=== PATIENT | male | born 1970 ===

== ENCOUNTER 2021-07-19 10:50 | Observation (INO) ==
[~2021-07-19 10:50] MED LIST: Buffered Lidocaine 1% SYRIN 1 ml INTRADERM ONE; Lactated Ringers 1000 ml BAG 1,000 ML IV SCH; Midazolam 2 mg/2 ml VIAL 1 mg/ml 2 ml VIAL (2 mg) ONE; Propofol 10 MG/ML 20 ML BTL ONE; fentaNYL 100 mcg/2 ml 50 MCG/ML VIAL ONE
[2021-07-19] MEDS ORDERED: ceFAZolin 2 GM PREMIX 2 GM/50 ML BAG ONE (11:03)
[2021-07-19] MEDS ORDERED: Rocuronium 50 mg VIAL 10 mg/ml 5 ml VIAL (50 mg) ONE ×2 (11:18→13:19)
[2021-07-19] MEDS ORDERED: Lidocaine 2% PF 5 ML VIAL ONE (11:36)
[2021-07-19 11:40] LABS: Urine Appearance Clear; Urine Bilirubin Negative (Negative); Urine Blood Negative (Negative); Urine Color Yellow; Urine Glucose Negative (Negative); Urine Ketones Negative (Negative); Urine Nitrite Negative (Negative); Urine Protein Negative (Negative); Urine Specific Gravity 1.021 (1.002-1.030); Urine Urobilinogen Negative (Negative)
[2021-07-19] MEDS ORDERED: Prochlorperazine 5 mg/ml 2 ml VIAL (10 mg) IV PRN (12:38)
[2021-07-19] MEDS ORDERED: Ondansetron 4 mg VIAL 2 MG/ML 2 ml VIAL IV PRN ×2 (12:38→13:07)
[2021-07-19] MEDS ORDERED: DiMENhydriNATE IV 50 mg/ml 1 ml VIAL IV PUSH PRN (12:38)
[2021-07-19] MEDS ORDERED: Naloxone 0.4 mg VIAL 0.4 mg/ml 1 ml VIAL IV PRN (12:38)
[2021-07-19] MEDS ORDERED: Acetaminophen IV 1 GM/100ML 100 ML IV PRN (12:38)
[2021-07-19] MEDS ORDERED: fentaNYL 100 mcg/2 ml 50 MCG/ML VIAL ONE ×3 (12:43→18:43)
[2021-07-19] MEDS ORDERED: HYDROmorphone 0.5 MG/0.5 ML SYRINGE ONE ×2 (12:44→14:09)
[2021-07-19] MEDS ORDERED: EPHEDrine (Pressors) 50 MG/ML VIAL ONE ×2 (12:46→15:25)
[2021-07-19] MEDS ORDERED: Vancomycin 1,000 MG VIAL ONE ×2 (13:02→13:10)
[2021-07-19] MEDS ORDERED: Morphine 2 MG/ML SYRINGE IV PRN (13:07)
[2021-07-19] MEDS ORDERED: Lactulose 30 ml UDC PO PRN (13:07)
[2021-07-19] MEDS ORDERED: Ondansetron ODT 4 mg TAB 4 MG TAB PO PRN (13:07)
[2021-07-19] MEDS ORDERED: diPHENhydraMINE 25 mg TAB PO PRN (13:07)
[2021-07-19] MEDS ORDERED: Magnesium Hydroxide LIQ 30 ML UDC PO PRN (13:07)
[2021-07-19] MEDS ORDERED: diPHENhydraMINE IV 50 MG/ML 1 ml VIAL (BENADRYL) IV PRN (13:07)
[2021-07-19] MEDS ORDERED: Bupivacaine 0.5% W/EPI SDV 10 ML VIAL INJ ONE (13:10)
[2021-07-19] MEDS ORDERED: Ketamine HCL 50 mg/ml 10 ml VIAL (500 MG) ONE (13:22)
[2021-07-19] MEDS ORDERED: Dexamethasone IV 4 MG/ML VIAL 1 ml VIAL ONE (13:27)
[2021-07-19] MEDS ORDERED: Lactated Ringers 1000 ml BAG 1,000 ML IV SCH (14:00)
[2021-07-19] MEDS ORDERED: Ondansetron 4 mg VIAL 2 MG/ML 2 ml VIAL ONE ×2 (14:09→18:44)
[2021-07-19] MEDS ORDERED: Acetaminophen IV 1 GM/100ML 100 ML IV ONE (15:46)
[2021-07-19] MEDS ORDERED: ceFAZolin VIAL VIAL ONE (16:07)
[2021-07-19] MEDS ORDERED: HYDROmorphone 1 MG/1 ML SYRINGE ONE (17:41)
[2021-07-19] MEDS: HYDROmorphone 1 MG/1 ML SYRINGE IV PRN ×2 (17:43→18:24)
[2021-07-19] MEDS: fentaNYL 100 mcg/2 ml 50 MCG/ML VIAL IV PRN ×3 (17:49→18:49)
[2021-07-19] MEDS ORDERED: fentaNYL 100 mcg/2 ml 50 MCG/ML VIAL IV PRN (18:29)
[2021-07-19] MEDS ORDERED: DiMENhydriNATE IV 50 mg/ml 1 ml VIAL ONE (18:44)
[2021-07-19] MEDS: Magnesium Hydroxide LIQ 30 ML UDC PO SCH (20:15)
[2021-07-19] MEDS: DULoxetine DR 30 mg CAP PO SCH (20:20)
[2021-07-19] MEDS: ceFAZolin 1 GM ADVAN 1 GM in NS 0.9% 50 ML 50 ML IVPB SCH (21:26)
[2021-07-20] MEDS: ceFAZolin 1 GM ADVAN 1 GM in NS 0.9% 50 ML 50 ML IVPB SCH ×2 (04:57→13:45)
[2021-07-20 07:16] LABS: Hematocrit 31 % (42-52); Hemoglobin 10.6 g/dL (14.0-18.0); Mean Platelet Volume 8.3 fL (7.4-10.4); Platelet Count 185 10^3/uL (150-450)
[2021-07-20 07:43] LABS: eGFR CKD-EPI 72.5 (>60)
[2021-07-20] MEDS: Vitamin THERAPEUTIC TAB PO SCH (08:44)
[2021-07-20] MEDS: DULoxetine DR 30 mg CAP PO SCH ×2 (08:44→20:29)
[2021-07-20] MEDS: Magnesium Hydroxide LIQ 30 ML UDC PO SCH ×2 (08:44→20:29)
[2021-07-20 14:17] LABS: Rapid COVID-19 Molecular Undetected (Undetected)
[2021-07-20] MEDS ORDERED: Al Hydrox/Mg Hydrox/Simet LIQ 30 ML UDC PO ONE (20:50)
[2021-07-21 06:28] LABS: Hematocrit 29 % (42-52); Hemoglobin 9.9 g/dL (14.0-18.0); Mean Platelet Volume 8.3 fL (7.4-10.4); Platelet Count 180 10^3/uL (150-450)
[2021-07-21] MEDS: DULoxetine DR 30 mg CAP PO SCH (10:15)
[2021-07-21] MEDS: Vitamin THERAPEUTIC TAB PO SCH (10:16)
[2021-07-21] MEDS: Magnesium Hydroxide LIQ 30 ML UDC PO SCH (10:17)
[2021-07-21 11:36] VITALS: BP 121/65
== END 2021-07-21 13:40 ==
LOC: AA 10:50 → INTOOBSV 10:50 → SSU 19:12
PROVIDERS: ADMIT Orthopaedic Surgery; ATTEND Orthopaedic Surgery